=== PATIENT | male | born 1940 | race Caucasian/White ===

== ENCOUNTER 2019-03-16 17:18 | Emergency (ER) | payer MEDICARE, BC, SELFPAY ==
[2019-03-16] VITALS (10 sets, daily range): BP systolic 146–207; BP diastolic 88–115; PULSE 72–79; RESP 19–28; TEMP 36.9; O2SAT 93–97; BMI 38.2
--- NOTE | 2019-03-16 17:21 | CT_ITS ---
STUDY: CTA OF THE BRAIN REASON FOR EXAM: Male, 79 years old. CVA. RADIATION DOSAGE (If Supplied By Facility): CTDIvol = ( 27.20 ) mGy, DLP = ( 824.66 ) mGycm TECHNIQUE: CT angiography was performed with a multi-detector CT scanner. Data acquisition was obtained from the skull base through the vertex following intravenous administration of 100cc IV Isovue 370. MIP images were reconstructed from the axial data set. Post-processing of the angiographic images was performed, with multiplanar reformation and 3D reconstruction. Individualized dose optimization techniques were used for this CT. COMPARISON: None. FINDINGS: Normal bilateral petrous carotid arteries. There is calcified plaque formation of the right cavernous carotid artery, without a cross-sectional luminal stenosis. There is calcified plaque formation of the left cavernous carotid artery, without a cross-sectional luminal stenosis. Normal right A1 segment of the anterior cerebral artery. Normal left A1 segment of the anterior cerebral artery. Normal intact anterior communicating artery (ACOM). Normal bilateral A2 segments of the anterior cerebral arteries. There is a high grade or critical stenosis of the M1 segment of the right middle cerebral artery, best demonstrated on series 605, image [id number]. This measures 3 mm in length. Normal M1 bifurcation. There is subtle decrease in opacification of the M2 branches of the right MCA compared to the left. Normal left M1 and M2 segments of the middle cerebral arteries, with a normal M1 bifurcation. Normal right posterior communicating artery (PCOM). Normal left posterior communicating artery (PCOM). There is moderate stenosis of the distal 3 mm of the right vertebral artery. Normal left vertebral artery. Normal basilar artery with a normal basilar bifurcation. The visualized bilateral superior cerebellar (SCA) arteries are normal. Normal bilateral P1, P2 and visualized P3 segments of the posterior cerebral arteries. There is no demonstrated aneurysm of the [place] of [place]. There is no demonstrated abnormality of the visualized brain. IMPRESSION: 1. High-grade to critical stenosis of the M1 segment of the right MCA. 2. Decreased flow in the M2 branches of the right MCA. 3. Moderate right vertebral artery stenosis. Electronically Signed: Khadijah Jyo MD at 18:03 EDT Tel , Service support , STUDY: CTA NECK WITH CONTRAST REASON FOR EXAM: Male, 79 years old. CVA. RADIATION DOSAGE (If Supplied By Facility): CTDIvol = ( 27.20 ) mGy, DLP = ( 824.66 ) mGycm TECHNIQUE: CT angiography with multi-detector data acquisition was performed from the aortic arch to the skull base following intravenous administration of 100cc IV Isovue 370. MIP images were reconstructed from the axial data set. Post-processing of the angiographic images was performed, with multiplanar reformation and 3D reconstruction. Individualized dose optimization techniques were used for this CT. COMPARISON: None. FINDINGS: AORTIC ARCH: Normal visualized aortic arch. Normal origins of the brachiocephalic, left common carotid, and left subclavian arteries. RIGHT CAROTID ARTERIES: Normal right common carotid artery (CCA). There is mild atherosclerotic plaque formation with minimal narrowing of the right carotid bulb. Normal origin of the right internal carotid (ICA) artery without a significant stenosis. Normal visualized cervical portion of the right internal carotid artery. Normal origin of the right external carotid artery (ECA). LEFT CAROTID ARTERIES: Normal left common carotid artery (CCA). There is mild atherosclerotic plaque formation with NO narrowing of the left carotid bulb. Normal origin of the left internal carotid (ICA) artery without significant stenosis. Normal visualized cervical portion of the left internal carotid artery. Normal origin of the left external carotid artery (ECA). VERTEBRAL ARTERIES: Normal bilateral vertebral arteries. There is shotty mediastinal adenopathy. Calcified granulomas are noted in the upper lobes bilaterally. CT/CTA Neck W/WO Contrast IMPRESSION: 1. Mild atherosclerotic disease. No significant stenosis. 2. Shotty mediastinal adenopathy. This may be due to infection or neoplasm. Consider nonemergent CT of the chest for further evaluation. 3. 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 Electronically Signed: Khadijah Joy MD at 18:14 EDT Tel , Service support ,
--- NOTE | 2019-03-16 17:21 | EKG12_ITS ---
Test Reason : STROKE TEAM Blood Pressure : / mmHG Vent. Rate : 081 BPM Atrial Rate : 288 BPM P-R Int : 000 ms QRS Dur : 090 ms QT Int : 400 ms P-R-T Axes : 000 053 -28 degrees QTc Int : 464 ms Atrial fibrillation Nonspecific ST and T wave abnormality Prolonged QT Abnormal ECG Confirmed by LORRAINE RUGGIERO, YOANA ([id number]), multimedia editor JUS LIPSCOMB ([id number]) on 03/18/2019 6:38:33 AM Referred By: SOIFA Confirmed By:YOANA PETERS MD
--- NOTE | 2019-03-16 17:21 | CT_ITS ---
STUDY: CTA OF THE BRAIN REASON FOR EXAM: Male, 79 years old. CVA. RADIATION DOSAGE (If Supplied By Facility): CTDIvol = ( 27.20 ) mGy, DLP = ( 824.66 ) mGycm TECHNIQUE: CT angiography was performed with a multi-detector CT scanner. Data acquisition was obtained from the skull base through the vertex following intravenous administration of 100cc IV Isovue 370. MIP images were reconstructed from the axial data set. Post-processing of the angiographic images was performed, with multiplanar reformation and 3D reconstruction. Individualized dose optimization techniques were used for this CT. COMPARISON: None. FINDINGS: Normal bilateral petrous carotid arteries. There is calcified plaque formation of the right cavernous carotid artery, without a cross-sectional luminal stenosis. There is calcified plaque formation of the left cavernous carotid artery, without a cross-sectional luminal stenosis. Normal right A1 segment of the anterior cerebral artery. Normal left A1 segment of the anterior cerebral artery. Normal intact anterior communicating artery (ACOM). Normal bilateral A2 segments of the anterior cerebral arteries. There is a high grade or critical stenosis of the M1 segment of the right middle cerebral artery, best demonstrated on series 605, image [id number]. This measures 3 mm in length. Normal M1 bifurcation. There is subtle decrease in opacification of the M2 branches of the right MCA compared to the left. Normal left M1 and M2 segments of the middle cerebral arteries, with a normal M1 bifurcation. Normal right posterior communicating artery (PCOM). Normal left posterior communicating artery (PCOM). There is moderate stenosis of the distal 3 mm of the right vertebral artery. Normal left vertebral artery. Normal basilar artery with a normal basilar bifurcation. The visualized bilateral superior cerebellar (SCA) arteries are normal. Normal bilateral P1, P2 and visualized P3 segments of the posterior cerebral arteries. There is no demonstrated aneurysm of the [place] of [place]. There is no demonstrated abnormality of the visualized brain. IMPRESSION: 1. High-grade to critical stenosis of the M1 segment of the right MCA. 2. Decreased flow in the M2 branches of the right MCA. 3. Moderate right vertebral artery stenosis. Electronically Signed: Khadijah Joy MD at 18:03 EDT Tel , Service support , STUDY: CTA NECK WITH CONTRAST REASON FOR EXAM: Male, 79 years old. CVA. RADIATION DOSAGE (If Supplied By Facility): CTDIvol = ( 27.20 ) mGy, DLP = ( 824.66 ) mGycm TECHNIQUE: CT angiography with multi-detector data acquisition was performed from the aortic arch to the skull base following intravenous administration of 100cc IV Isovue 370. MIP images were reconstructed from the axial data set. Post-processing of the angiographic images was performed, with multiplanar reformation and 3D reconstruction. Individualized dose optimization techniques were used for this CT. COMPARISON: None. FINDINGS: AORTIC ARCH: Normal visualized aortic arch. Normal origins of the brachiocephalic, left common carotid, and left subclavian arteries. RIGHT CAROTID ARTERIES: Normal right common carotid artery (CCA). There is mild atherosclerotic plaque formation with minimal narrowing of the right carotid bulb. Normal origin of the right internal carotid (ICA) artery without a significant stenosis. Normal visualized cervical portion of the right internal carotid artery. Normal origin of the right external carotid artery (ECA). LEFT CAROTID ARTERIES: Normal left common carotid artery (CCA). There is mild atherosclerotic plaque formation with NO narrowing of the left carotid bulb. Normal origin of the left internal carotid (ICA) artery without significant stenosis. Normal visualized cervical portion of the left internal carotid artery. Normal origin of the left external carotid artery (ECA). VERTEBRAL ARTERIES: Normal bilateral vertebral arteries. There is shotty mediastinal adenopathy. Calcified granulomas are noted in the upper lobes bilaterally. CT/CTA Head W/WO Contrast IMPRESSION: 1. Mild atherosclerotic disease. No significant stenosis. 2. Shotty mediastinal adenopathy. This may be due to infection or neoplasm. Consider nonemergent CT of the chest for further evaluation. 3. 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 Electronically Signed: Khadijah Joy MD at 18:14 EDT Tel , Service support ,
--- NOTE | 2019-03-16 17:21 | CT_ITS ---
We are attempting to reach an attending provider to discuss findings. An addendum with communication details will be sent when the communication is complete. STUDY: CT BRAIN WITHOUT CONTRAST REASON FOR EXAM: Male, 79 years old. CVA RADIATION DOSAGE (If Supplied By Facility): TECHNIQUE: Transaxial CT imaging of the brain was performed without administration of intravenous contrast material. Individualized dose optimization techniques were used for this CT. COMPARISON: None. 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 There is no evidence of acute intracranial bleed. There are chronic ischemic and atrophic changes. The ventricles are normal in configuration. There is no hydrocephalus. Bilateral frontal sinus disease is present. The mastoid air cells are well aerated. There is no skull fracture. CT/Brain/Head without Contrast IMPRESSION: Chronic ischemic and atrophic changes, as well as sequelae of old right parieto-occipital infarct. No evidence of acute intracranial bleed. If further clinical concern, MRI is more sensitive for detection of acute on chronic disease. Bilateral frontal sinus disease. Electronically Signed: Arie Sherman, at 17:40 EDT Tel , Service support ,
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
[2019-03-16 17:45] LABS: Bedside Glucose 198 mg/dL (70-110)
--- NOTE | 2019-03-16 17:52 | NURSING ---
NEUROLOGY PAGED. CALLED BACK
[2019-03-16 17:58] LABS: Absolute Lymphocyte Count 1.78 X10^3/ul (0.83-4.51); Absolute Neutrophil Count 4.3 X10^3/uL (2.0-7.7); Basophil# 0.03 X10^3/uL; Basophil% 0.4 % (0-1); Eosinophil# 0.25 X10^3/uL; Eosinophils% 3.4 % (0-5); Hematocrit 43.5 % (40-54); Hemoglobin 14.7 g/dl (13.0-16.5); Lymphocyte # 1.78 X10^3/ul (4.0); Lymphocyte % 24.5 % (19-41); Mean Corp Hgb Conc 33.8 g/gl (32-36); Mean Corpuscular Hgb 31.1 pg (27.0-32.0); Mean Platelet Vol. 10.3 fl (6.2-12.0); Monocyte% 12.4 % (0-10); Neutrophil # 4.31 X10^3/uL (2.7-7.7); Neutrophil % 59.3 % (47-70); Platelet Count 152 K/mm3 (150-450); RBC Distribution Width CV 12.7 % (11.6-14.6); Red Blood Count 4.73 M/mm3 (4.6-6.2); White Blood Count 7.3 K/mm3 (4.4-11.0)
[2019-03-16 17:59] LABS: POSITIVE COUNT NO; POSITIVE DIFFERENTIAL NO; POSITIVE MORPHOLOGY NO
[2019-03-16 18:05] LABS: International Normalized Ratio 1.1; Prothrombin Time (Protime)PT. 13.5 SECONDS (11.7-14.9)
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
[2019-03-16 18:14] LABS: Anion Gap 9 (5-15); BUN 17 mg/dL (7-18); BUN/Creat Ratio 14.7 RATIO (10-20); Calcium,Total 8.6 mg/dL (8.5-10.1); Chloride 105 mmol/L (98-107); Creatinine, Serum 1.16 mg/dL (0.70-1.30); EST Glomerular Filtration Rate 65 mL/min (>60); Est Glom Filt Rate - Afr Amer 78 mL/min (>60); Estimated Creatinine Clearance 57.61 ml/min; Glucose 218 mg/dL (74-106); Potassium 3.8 mmol/L (3.5-5.1); Sodium Level 139 mmol/L (136-145)
[2019-03-16] MEDS: 0.9% Normal Saline 1,000 ML 999 ML IV (18:39)
== END 2019-03-16 19:16 | disposition short-term general hospital (02) ==
PROVIDERS: Emergency Provider Emergency Medicine; Family Provider Family Medicine; PCP Family Medicine
DX: I63.511 Cerebral infarction due to unspecified occlusion or stenosis of right middle cerebral artery (principal); R47.81 Slurred speech; G83.24 Monoplegia of upper limb affecting left nondominant side; R29.810 Facial weakness; R29.708 NIHSS score 8; J32.1 Chronic frontal sinusitis; E66.9 Obesity, unspecified; I48.91 Unspecified atrial fibrillation; Z79.01 Long term (current) use of anticoagulants; R20.0 Anesthesia of skin
CPT/HCPCS: 70450; 70496; 70498; 71045; 80048; 82962; 84484; 85025; 85610; 85730; 93005; 96361; 96374; 99285; J7030; Q9967; A4216